=== PATIENT | female | born 1950 | race Caucasian/White ===

== ENCOUNTER 2022-04-17 17:13 | Inpatient (IN) | payer MEDICARE ==
[~2022-04-17] VITALS: Ht 157.5 cm; Wt 122.5 kg
[2022-04-17] MEDS ORDERED: SIMETHICONE 80 MG CHEW PO PRN (20:45)
[2022-04-17] MEDS ORDERED: BENZONATATE 100 MG CAP PO PRN (20:45)
[2022-04-17] MEDS ORDERED: DIPHENHYDRAMINE HCL 25 MG CAP PO PRN (20:45)
[2022-04-17] MEDS ORDERED: DOCUSATE SODIUM 100 MG CAP PO PRN (20:45)
[2022-04-17] MEDS ORDERED: LIDOCAINE 4% PATCH TP PRN (20:45)
[2022-04-17] MEDS ORDERED: DEXTROSE 50% SYRINGE 50 ML IV PRN (20:45)
[2022-04-17] MEDS ORDERED: ASPIRIN 81 MG CHEW TAB PO ONE (20:45)
[2022-04-17] MEDS ORDERED: POTASSIUM CHLORIDE 20 MEQ TAB CR PO PRN (20:45)
[2022-04-17] MEDS ORDERED: ALBUTEROL/IPRATROPIUM 3 ML NEB NEB PRN (20:45)
[2022-04-17] MEDS ORDERED: METOLAZONE 5 MG TAB PO ONE (20:45)
[2022-04-17] MEDS ORDERED: HYDRALAZINE HCL 20 MG/ML VIAL IV PRN (20:45)
[2022-04-17] MEDS ORDERED: ONDANSETRON HCL INJ 2MG/ML 2ML 2 MG/ML VIAL IV PRN (20:45)
[2022-04-17 21:00] VITALS: BP 174/95
[2022-04-17 21:13] LABS: BASOPHILS % 0.3 % (0.0-1.0); EOSINOPHILS % 0.1 % (0.0-6.0); HEMATOCRIT 26.9 % (34.2-44.1); LYMPHOCYTES # (AUTO) 0.5 (1.0-3.2); LYMPHOCYTES % 5.2 % (18.0-39.1); MEAN CORPUSCULAR HEMOGLOBIN 20.5 pg (28-32); MEAN CORPUSCULAR VOLUME 78.9 fL (81-99); MONOCYTES % 0.4 % (4.4-11.3); NEUTROPHILS # (AUTO) 8.5 (2.1-6.9); NEUTROPHILS % 91.9 % (38.7-80.0); PLATELET COUNT 297 x10e3/uL (140-360); RED BLOOD COUNT 3.41 x10e6/uL (3.6-5.1); RED CELL DISTRIBUTION WIDTH 20.2 % (11.7-14.4)
[2022-04-17 21:27] LABS: ANION GAP 19.2 mmol/L (8-16); CALCIUM 9.2 mg/dL (8.4-10.2); CREATININE, SERUM 2.14 mg/dL (0.57-1.11); POTASSIUM 5.2 mmol/L (3.5-5.1)
[2022-04-17 21:41] LABS: ABG HCO3 23 mmol/L (22-26); ABG PCO2 40 mmHg (35-45); ABG PH 7.36 (7.35-7.45); ABG PO2 89 mmHg (80-105); ABG TCO2 24
[2022-04-17 21:50] LABS: CREATINE KINASE MB 2.5 ng/mL (0-5.0)
[2022-04-17 22:00] VITALS: BP 152/98
[2022-04-17] MEDS: METHYLPREDNISOLONE SOD SUCC 40 MG/ML VIAL 1ML IV SCH (22:28)
[2022-04-17] MEDS: FUROSEMIDE INJ 100 MG in SODIUM CHLORIDE 0.9% 90 ML IV SCH (22:28)
[2022-04-17] MEDS: ACETAMINOPHEN 325 MG TAB PO PRN (22:55)
[2022-04-17 23:00] VITALS: BP 149/79
[2022-04-17 23:29] VITALS: BP 149/79
[2022-04-18] VITALS (26 sets, daily range): BP systolic 98–174; BP diastolic 64–117
[2022-04-18] MEDS ORDERED: DEXTROSE 50% SYRINGE 50 ML IV PRN ×2 (00:30→03:45)
[2022-04-18] MEDS ORDERED: SODIUM CHLORIDE 0.9% 250ML 250 ML IV ONE (00:30)
[2022-04-18] MEDS ORDERED: AMIODARONE HCL200 MG PO (02:23)
[2022-04-18] MEDS ORDERED: ELIQUIS5 MG PO (02:25)
[2022-04-18] MEDS ORDERED: NORVASC10 MG PO (02:25)
[2022-04-18] MEDS: MELATONIN 5 MG TABLET PO PRN (03:38)
[2022-04-18] MEDS ORDERED: LIPITOR10 MG PO (04:57)
[2022-04-18] MEDS ORDERED: FERROCITE324 MG PO (04:57)
[2022-04-18] MEDS ORDERED: BUMETANIDE0.5 MG PO (04:57)
[2022-04-18] MEDS ORDERED: FERROCITE PLUS1 EACH PO (04:57)
[2022-04-18] MEDS ORDERED: DECARA625 MCG (04:57)
[2022-04-18] MEDS ORDERED: FOLVITE-D 1,001 EAC1 (04:58)
[2022-04-18] MEDS ORDERED: NEURONTIN300 MG PO (05:00)
[2022-04-18] MEDS ORDERED: HYDROCODON-ACE1 EAC9 PO (05:00)
[2022-04-18] MEDS ORDERED: ISOSORBIDE MONO60 MG PO (05:04)
[2022-04-18] MEDS ORDERED: TOPROL XL100 MG PO (05:05)
[2022-04-18] MEDS ORDERED: MUPIROCIN22 GM TOP (05:06)
[2022-04-18] MEDS ORDERED: OMEPRAZOLE40 MG PO (05:07)
[2022-04-18] MEDS ORDERED: PANTOPRAZOLE SO40 MG PO (05:08)
[2022-04-18] MEDS ORDERED: CARAFATE1 GM PO (05:09)
[2022-04-18] MEDS ORDERED: TRIAMCINOLONE A15 G3 (05:11)
[2022-04-18] MEDS ORDERED: PULMICORT2 ML NEB (05:14)
[2022-04-18 06:01] LABS: CREATINE KINASE 40 IU/L (29-168)
[2022-04-18 06:04] LABS: ALBUMIN 2.6 g/dL (3.5-5.0); ALBUMIN/GLOBULIN RATIO 0.6 (0.8-2.0); ANION GAP 16.7 mmol/L (8-16); CALCIUM 8.6 mg/dL (8.4-10.2); CHOL/HDL RATIO 4.5 (3.0-3.6); CREATININE, SERUM 2.16 mg/dL (0.57-1.11); MAGNESIUM 1.6 MG/DL (1.3-2.1); PHOSPHORUS 5.5 MG/DL (2.3-4.7); POTASSIUM 4.7 mmol/L (3.5-5.1)
[2022-04-18 06:24] LABS: THYROID STIMULATING HORMONE 0.993 uIU/mL (0.350-4.940)
[2022-04-18 06:42] LABS: FERRITIN 27.29 ng/mL (4.63-204.00)
[2022-04-18] MEDS ORDERED: INSULIN LISPRO 100 UNIT/1 ML 3ML VIAL SQ SCH (07:30)
[2022-04-18] MEDS: FUROSEMIDE INJ 100 MG in SODIUM CHLORIDE 0.9% 90 ML IV SCH (08:43)
[2022-04-18] MEDS ORDERED: DIPHENHYDRAMINE HCL INJ 50 MG/ML VIAL IV PRN ×2 (08:45→11:30)
[2022-04-18] MEDS: INSULIN REGULAR, HUMAN 100 UNIT/1 ML SQ SCH ×4 (08:56→22:39)
[2022-04-18] MEDS: LORATADINE 10 MG TAB PO SCH ×2 (09:00→21:31)
[2022-04-18] MEDS: METHYLPREDNISOLONE SOD SUCC 40 MG/ML VIAL 1ML IV SCH ×2 (09:04→21:32)
[2022-04-18] MEDS: AMIODARONE HCL 200 MG TAB PO SCH (09:04)
[2022-04-18] MEDS: ASPIRIN 81 MG ENTERIC COATED PO SCH (09:05)
[2022-04-18] MEDS ORDERED: SODIUM CHLORIDE 0.9% 250ML 250 ML ONE (09:21)
[2022-04-18] MEDS: GABAPENTIN 300 MG CAP PO SCH ×2 (10:23→16:55)
[2022-04-18] MEDS: ACETAMINOPHEN 325 MG TAB PO PRN (13:49)
[2022-04-18 15:22] LABS: CREATINE KINASE MB 3.3 ng/mL (0-5.0)
[2022-04-18] MEDS: HYDROCODONE/APAP 5MG-325MG TAB PO PRN ×2 (15:28→21:31)
[2022-04-18] MEDS ORDERED: METHYLPREDNISOLONE SOD SUCC 125 MG/2ML VIAL IV ONE (16:00)
[2022-04-18] MEDS ORDERED: ENOXAPARIN SOD INJ 40 MG/0.4 ML SYR SC SCH (17:00)
[2022-04-18] MEDS ORDERED: GABAPENTIN 300 MG CAP PO SCH (17:00)
[2022-04-18] MEDS ORDERED: INSULIN GLARGINE 100 UNITS/ML VIAL SQ SCH (21:00)
[2022-04-18] MEDS: FUROSEMIDE INJ 10 MG/ML 4 ML VIAL IV SCH (21:32)
[2022-04-19] VITALS (8 sets, daily range): BP systolic 126–152; BP diastolic 62–97
[2022-04-19 05:57] LABS: BASOPHILS % 0.1 % (0.0-1.0); HEMATOCRIT 29.5 % (34.2-44.1); HEMOGLOBIN 7.9 g/dL (12.0-16.0); LYMPHOCYTES # (AUTO) 0.4 (1.0-3.2); LYMPHOCYTES % 4.9 % (18.0-39.1); MEAN CORPUSCULAR HEMOGLOBIN 21.1 pg (28-32); MEAN CORPUSCULAR HGB CONC 26.8 g/dL (31-35); MEAN CORPUSCULAR VOLUME 78.9 fL (81-99); MONOCYTES # (AUTO) 0.3 (0.2-0.8); MONOCYTES % 3.5 % (4.4-11.3); NEUTROPHILS % 90.5 % (38.7-80.0); PLATELET COUNT 276 x10e3/uL (140-360); RED BLOOD COUNT 3.74 x10e6/uL (3.6-5.1); RED CELL DISTRIBUTION WIDTH 20.3 % (11.7-14.4)
[2022-04-19 06:19] LABS: ANION GAP 17.7 mmol/L (8-16); CALCIUM 8.8 mg/dL (8.4-10.2); CREATININE, SERUM 2.72 mg/dL (0.57-1.11); POTASSIUM 4.7 mmol/L (3.5-5.1)
[2022-04-19] MEDS: INSULIN REGULAR, HUMAN 100 UNIT/1 ML SQ SCH ×4 (08:28→21:49)
[2022-04-19] MEDS: METHYLPREDNISOLONE SOD SUCC 40 MG/ML VIAL 1ML IV SCH (08:52)
[2022-04-19] MEDS: ASPIRIN 81 MG ENTERIC COATED PO SCH (08:52)
[2022-04-19] MEDS: GABAPENTIN 300 MG CAP PO SCH ×2 (08:52→16:41)
[2022-04-19] MEDS: AMIODARONE HCL 200 MG TAB PO SCH (08:52)
[2022-04-19] MEDS: LORATADINE 10 MG TAB PO SCH ×2 (08:53→21:32)
[2022-04-19] MEDS: FUROSEMIDE INJ 10 MG/ML 4 ML VIAL IV SCH (08:53)
[2022-04-19] MEDS: HYDROCODONE/APAP 5MG-325MG TAB PO PRN ×2 (09:08→21:32)
[2022-04-19] MEDS ORDERED: LACTULOSE SYRUP 20 GM/30 ML UDC PO PRN (12:15)
[2022-04-19] MEDS ORDERED: ONDANSETRON HCL 4 MG ORAL DISINTEGRATING TAB PO PRN (12:45)
[2022-04-19] MEDS ORDERED: ALBUMIN 5% 0.05 GM/ML BTL IV ONE (14:00)
[2022-04-19] MEDS ORDERED: ALBUMIN 5% 250ML 250 ML IV ONE (14:30)
[2022-04-19] MEDS: METOPROLOL SUCCINATE 25 MG TAB XL PO SCH (14:31)
[2022-04-19] MEDS: ENOXAPARIN 30 MG/0.3 ML SYR SC SCH (16:42)
[2022-04-19] MEDS: BUMETANIDE INJ 0.25MG/ML 4ML VIAL IV SCH (21:32)
[2022-04-20] VITALS (8 sets, daily range): BP systolic 126–158; BP diastolic 59–83
[2022-04-20 05:36] LABS: HEMATOCRIT 29.4 % (34.2-44.1); HEMOGLOBIN 7.8 g/dL (12.0-16.0); LYMPHOCYTES # (AUTO) 0.4 (1.0-3.2); LYMPHOCYTES % 3.4 % (18.0-39.1); MEAN CORPUSCULAR HEMOGLOBIN 21.3 pg (28-32); MEAN CORPUSCULAR HGB CONC 26.5 g/dL (31-35); MEAN CORPUSCULAR VOLUME 80.1 fL (81-99); MONOCYTES # (AUTO) 0.6 (0.2-0.8); MONOCYTES % 5.5 % (4.4-11.3); NEUTROPHILS # (AUTO) 9.7 (2.1-6.9); PLATELET COUNT 274 x10e3/uL (140-360); RED BLOOD COUNT 3.67 x10e6/uL (3.6-5.1); RED CELL DISTRIBUTION WIDTH 20.1 % (11.7-14.4)
[2022-04-20 06:05] LABS: ALBUMIN/GLOBULIN RATIO 0.7 (0.8-2.0); ANION GAP 18.5 mmol/L (8-16); CALCIUM 8.8 mg/dL (8.4-10.2); CREATININE, SERUM 2.51 mg/dL (0.57-1.11); POTASSIUM 4.5 mmol/L (3.5-5.1)
[2022-04-20] MEDS: INSULIN REGULAR, HUMAN 100 UNIT/1 ML SQ SCH ×4 (07:30→22:16)
[2022-04-20 08:00] LABS: ANISOCYTOSIS MODERATE; HYPOCHROMASIA MODERATE; MICROCYTOSIS SLIGHT; PLATELET ESTIMATE ADEQUATE; PLATELET MORPHOLOGY COMMENT NORMAL; RBC MORPHOLOGY COMMENT ABNORMAL
[2022-04-20] MEDS: HYDROCODONE/APAP 5MG-325MG TAB PO PRN ×2 (08:20→23:26)
[2022-04-20] MEDS: LORATADINE 10 MG TAB PO SCH (09:00)
[2022-04-20] MEDS: METHYLPREDNISOLONE SOD SUCC 40 MG/ML VIAL 1ML IV SCH (09:00)
[2022-04-20] MEDS: BUMETANIDE INJ 0.25MG/ML 4ML VIAL IV SCH (09:00)
[2022-04-20] MEDS: AMIODARONE HCL 200 MG TAB PO SCH (09:01)
[2022-04-20] MEDS: GABAPENTIN 300 MG CAP PO SCH ×2 (09:01→15:45)
[2022-04-20] MEDS: METOPROLOL SUCCINATE 25 MG TAB XL PO SCH (09:02)
[2022-04-20] MEDS: ASPIRIN 81 MG ENTERIC COATED PO SCH (09:02)
[2022-04-20] MEDS ORDERED: SODIUM CHLORIDE 0.9% 250ML 250 ML ONE (09:34)
[2022-04-20] MEDS ORDERED: INSULIN GLARGINE 100 UNITS/ML VIAL SQ SCH ×2 (09:45→21:00)
[2022-04-20] MEDS ORDERED: ALBUMIN 5% 0.05 GM/ML BTL IV ONE (11:00)
[2022-04-20] MEDS: ENOXAPARIN 30 MG/0.3 ML SYR SC SCH (15:45)
[2022-04-20] MEDS: BUMETANIDE 1 MG TAB PO SCH (15:45)
[2022-04-20] MEDS: MELATONIN 5 MG TABLET PO PRN (23:26)
[2022-04-21] VITALS (8 sets, daily range): BP systolic 95–155; BP diastolic 49–91
[2022-04-21 07:01] LABS: ALBUMIN 3.1 g/dL (3.5-5.0); ALBUMIN/GLOBULIN RATIO 0.8 (0.8-2.0); ANION GAP 17.1 mmol/L (8-16); CALCIUM 8.5 mg/dL (8.4-10.2); CREATININE, SERUM 2.2 mg/dL (0.57-1.11); POTASSIUM 4.1 mmol/L (3.5-5.1)
[2022-04-21] MEDS: METOPROLOL SUCCINATE 25 MG TAB XL PO SCH (08:50)
[2022-04-21] MEDS: AMIODARONE HCL 200 MG TAB PO SCH (08:50)
[2022-04-21] MEDS: ASPIRIN 81 MG ENTERIC COATED PO SCH (08:50)
[2022-04-21] MEDS: GABAPENTIN 300 MG CAP PO SCH ×2 (08:50→16:51)
[2022-04-21] MEDS: BUMETANIDE 1 MG TAB PO SCH ×2 (08:50→16:51)
[2022-04-21] MEDS: METHYLPREDNISOLONE SOD SUCC 40 MG/ML VIAL 1ML IV SCH (08:51)
[2022-04-21] MEDS: INSULIN GLARGINE 100 UNITS/ML VIAL SQ SCH (08:54)
[2022-04-21] MEDS: INSULIN REGULAR, HUMAN 100 UNIT/1 ML SQ SCH ×4 (08:54→21:17)
[2022-04-21] MEDS ORDERED: METOPROLOL SUCCINATE 25 MG TAB XL PO ONE (09:45)
[2022-04-21] MEDS ORDERED: BUMETANIDE INJ 0.25MG/ML 4ML VIAL IV ONE (11:00)
[2022-04-21] MEDS ORDERED: EPOETIN ALFA-EPBX 10,000 UNIT/ML VIAL SC ONE (11:00)
[2022-04-21] MEDS: IRON SUCROSE 100 MG in SODIUM CHLORIDE 0.9% 100 ML IV SCH (11:47)
[2022-04-21] MEDS: HYDROCODONE/APAP 5MG-325MG TAB PO PRN (11:47)
[2022-04-21] MEDS: ENOXAPARIN 30 MG/0.3 ML SYR SC SCH (16:51)
[2022-04-21 19:01] LABS: CREATININE,URINE RANDOM 20.82 mg/dL (47-110); TOTAL PROTEIN, URINE 122.9 mg/dL (1-14)
[2022-04-21] MEDS ORDERED: ATORVASTATIN 20 MG TAB PO SCH (21:00)
[2022-04-21] MEDS ORDERED: INSULIN GLARGINE 100 UNITS/ML VIAL SQ SCH (21:00)
[2022-04-22 01:28] VITALS: BP 149/89
[2022-04-22 06:53] LABS: BASOPHILS % 0.1 % (0.0-1.0); HEMATOCRIT 34.2 % (34.2-44.1); HEMOGLOBIN 9.2 g/dL (12.0-16.0); LYMPHOCYTES # (AUTO) 0.8 (1.0-3.2); LYMPHOCYTES % 6.1 % (18.0-39.1); MEAN CORPUSCULAR HEMOGLOBIN 20.9 pg (28-32); MEAN CORPUSCULAR HGB CONC 26.9 g/dL (31-35); MEAN CORPUSCULAR VOLUME 77.7 fL (81-99); MONOCYTES # (AUTO) 1.2 (0.2-0.8); MONOCYTES % 9.7 % (4.4-11.3); NEUTROPHILS # (AUTO) 10.3 (2.1-6.9); NEUTROPHILS % 81.9 % (38.7-80.0); PLATELET COUNT 257 x10e3/uL (140-360); RED CELL DISTRIBUTION WIDTH 18.7 % (11.7-14.4)
[2022-04-22 07:11] LABS: ANION GAP 18.2 mmol/L (8-16); CALCIUM 9.1 mg/dL (8.4-10.2); CREATININE, SERUM 1.98 mg/dL (0.57-1.11); POTASSIUM 4.2 mmol/L (3.5-5.1)
[2022-04-22 08:26] VITALS: BP 139/80
[2022-04-22] MEDS ORDERED: METOPROLOL SUCCINATE 50 MG TAB XL PO SCH (09:00)
[2022-04-22] MEDS ORDERED: PREDNISONE 20 MG TAB PO SCH (09:00)
[2022-04-22 09:20] VITALS: BP 139/80
[2022-04-22] MEDS: INSULIN REGULAR, HUMAN 100 UNIT/1 ML SQ SCH ×2 (10:21→12:58)
[2022-04-22] MEDS: INSULIN GLARGINE 100 UNITS/ML VIAL SQ SCH (10:24)
[2022-04-22] MEDS: ASPIRIN 81 MG ENTERIC COATED PO SCH (10:26)
[2022-04-22] MEDS: BUMETANIDE 1 MG TAB PO SCH (10:26)
[2022-04-22] MEDS: AMIODARONE HCL 200 MG TAB PO SCH (10:26)
[2022-04-22] MEDS: GABAPENTIN 300 MG CAP PO SCH (10:26)
[2022-04-22] MEDS: HYDROCODONE/APAP 5MG-325MG TAB PO PRN (10:29)
[2022-04-22] MEDS: IRON SUCROSE 100 MG in SODIUM CHLORIDE 0.9% 100 ML IV SCH (10:30)
[2022-04-22] MEDS ORDERED: PREDNISONE20 MG PO (11:16)
[2022-04-22] MEDS ORDERED: BUMETANIDE0.5 MG PO ×2 (11:16→14:52)
[2022-04-22 12:15] VITALS: BP 151/68
== END 2022-04-22 14:55 | disposition home or self-care (01) | DRG 291 ==
LOC: ICU 20:16 → MED/SURG3 04-18 17:30
PROVIDERS: ADMIT Internal Medicine; ATTEND Internal Medicine
PROC: 02HV33Z Insertion of Infusion Device into Superior Vena Cava, Percutaneous Approach (ICD-10-PCS; principal; 2022-04-17)
PROC: 30243N1 Transfusion of Nonautologous Red Blood Cells into Central Vein, Percutaneous Approach (ICD-10-PCS; 2022-04-17)
PROC: 5A09357 Assistance with Respiratory Ventilation, Less than 24 Consecutive Hours, Continuous Positive Airway Pressure (ICD-10-PCS; 2022-04-17)
PROC: 5A0935A Assistance with Respiratory Ventilation, Less than 24 Consecutive Hours, High Flow/Velocity Cannula (ICD-10-PCS; 2022-04-18)
DX: I13.0 Hypertensive heart and chronic kidney disease with heart failure and stage 1 through stage 4 chronic kidney disease, or unspecified chronic kidney disease (principal); I50.33 Acute on chronic diastolic (congestive) heart failure; J96.01 Acute respiratory failure with hypoxia; N17.9 Acute kidney failure, unspecified; J44.1 Chronic obstructive pulmonary disease with (acute) exacerbation; Z68.42 Body mass index [BMI] 45.0-49.9, adult; J90 Pleural effusion, not elsewhere classified; N18.30 Chronic kidney disease, stage 3 unspecified; E11.22 Type 2 diabetes mellitus with diabetic chronic kidney disease; Z79.4 Long term (current) use of insulin; D50.0 Iron deficiency anemia secondary to blood loss (chronic); L40.9 Psoriasis, unspecified; K21.9 Gastro-esophageal reflux disease without esophagitis; G47.33 Obstructive sleep apnea (adult) (pediatric); E66.01 Morbid (severe) obesity due to excess calories; I48.91 Unspecified atrial fibrillation; Z79.01 Long term (current) use of anticoagulants; I25.10 Atherosclerotic heart disease of native coronary artery without angina pectoris; Z95.5 Presence of coronary angioplasty implant and graft; N18.32 Chronic kidney disease, stage 3b; D63.8 Anemia in other chronic diseases classified elsewhere; E11.69 Type 2 diabetes mellitus with other specified complication; E78.2 Mixed hyperlipidemia; E11.65 Type 2 diabetes mellitus with hyperglycemia; J30.9 Allergic rhinitis, unspecified; Z88.1 Allergy status to other antibiotic agents; Z88.2 Allergy status to sulfonamides; Z88.8 Allergy status to other drugs, medicaments and biological substances; Z20.822 Contact with and (suspected) exposure to COVID-19
CPT/HCPCS: 36415; 36600; 71045; 76604; 76770; 80048; 80053; 80061; 82550; 82553; 82570; 82728; 82805; 82948; 83036; 83540; 83735; 84100; 84156; 84443; 84466; 84484; 85025; 86850; 86900; 86920; 93306; 94660; 94799; 96365; 99252; J0696; J1200; J1650; J1756; J1815; J1817; J1940; J2920; J2930; J7050; J7512; P9016; P9045